=== PATIENT | female | born 1990 | race Hispanic/Latino ===

== ENCOUNTER 2016-08-21 15:55 | Emergency (ER) | payer MEDICAID ==
[2016-08-21 16:03] VITALS: TEMP 98.6
--- NOTE | 2016-08-21 16:20 | ED PDOC ---
Arrival/HPI - General Chief Complaint: Alcohol Ingestion Time Seen by Provider: 08/21/16 15:57 Historian: Patient - History of Present Illness Narrative History of Present Illness (Text): 08/21/16 16:16 26 y/o female, pmh including alcohol withdrawal seizure, psychiatric history of alcohol abuse, c/o need prescription for librium. Pt. stated that she has been drinking for the past half 2 weeks, last detox about 3 weeks ago, stated that she is afraid that she will get withdrawal seizure as she wants to stop drinking. Pt. has no chest pain or shortness of breath, no palpitation, no dizziness, no palpitation, no rash, no numbness or tingling, no change in vision , no other medical or psychological complaints. Pt. has no homicidal or suicidal ideation, no auditory or visual hallucination. Past Medical History - Provider Review Nursing Documentation Reviewed: Yes - Cardiac Hx Cardiac Disorders: No - Pulmonary Hx Respiratory Disorders: No - Neurological Hx Neurological Disorder: No - HEENT Hx HEENT Disorder: No - Renal Hx Renal Disorder: No - Endocrine/Metabolic Hx Endocrine Disorders: No - Hematological/Oncological Hx Cancer: Yes - Integumentary Hx Dermatological Disorder: No - Musculoskeletal/Rheumatological Hx Musculoskeletal Disorders: No - Gastrointestinal Other/Comment: SMALL BOWEL CA - Genitourinary/Gynecological Hx Genitourinary Disorders: No - Psychiatric Hx Depression: Yes Hx Substance Use: No Other/Comment: HX OF PSYCH ADMISSION - Surgical History Hx Orthopedic Surgery: Yes (R ANKLE) Other/Comment: BOWEL RESECTION Family/Social History - Physician Review Nursing Documentation Reviewed: Yes Family/Social History: Unknown Family HX Smoking Status: Heavy Smoker > 10 Cigarettes Daily Hx Alcohol Use: Yes Hx Substance Use: No Allergies/Home Meds Allergies/Adverse Reactions: Allergies No Known Allergies Allergy (Verified 08/21/16 15:57) Review of Systems - Review of Systems Constitutional: absent: Fatigue, Fevers Eyes: absent: Vision Changes ENT: absent: Hearing Changes Respiratory: absent: SOB, Cough Cardiovascular: absent: Chest Pain Gastrointestinal: absent: Abdominal Pain, Nausea, Vomiting Musculoskeletal: absent: Arthralgias, Back Pain, Neck Pain, Joint Swelling, Myalgias Skin: absent: Rash, Pruritis, Skin Lesions Psychiatric: absent: Anxiety, Depression, Suicidal Ideation Physical Exam Vital Signs Reviewed: Yes Vital Signs Temp Pulse Resp BP Pulse Ox 08/21/16 15:58 98.6 F 80 16 123/81 96 Temperature: Afebrile Blood Pressure: Normal Pulse: Regular Respiratory Rate: Normal Appearance: Positive for: Well-Appearing, Non-Toxic, Comfortable Pain Distress: None Mental Status: Positive for: Alert and Oriented X 3 - Systems Exam Head: Present: Atraumatic, Normocephalic Pupils: Present: PERRL Extroacular Muscles: Present: EOMI Conjunctiva: Present: Normal Mouth: Present: Moist Mucous Membranes Neck: Present: Normal Range of Motion Respiratory/Chest: Present: Clear to Auscultation, Good Air Exchange. No: Respiratory Distress, Accessory Muscle Use Cardiovascular: Present: Regular Rate and Rhythm, Normal S1, S2. No: Murmurs Abdomen: Present: Normal Bowel Sounds. No: Tenderness, Distention, Peritoneal Signs Back: Present: Normal Inspection Upper Extremity: Present: Normal Inspection. No: Cyanosis, Edema Lower Extremity: Present: Normal Inspection. No: Edema Neurological: Present: GCS=15, CN II-XII Intact, Speech Normal, Motor Func Grossly Intact, Gait Normal, Memory Normal, Other (no tongue fasciculation, no hand tremors) Skin: Present: Warm, Dry, Normal Color. No: Rashes Psychiatric: Present: Alert, Oriented x 3, Normal Insight, Normal Concentration. No: Anxious, Agitated, Depressed Mood, Suicidal Ideation, Homicidal Ideation, Intoxicated Medical Decision Making ED Course and Treatment: 08/21/16 16:20 -I reviewed the [facility] report with DR. Sahu, last librium 25mg/capsule with 15 capsules on 03/25/2016. Pt. is high risk for withdrawal seizure, we will prescribe librium to her. -Urine hcg negative. -FS 81 -Discharge home with librium, stay hydrated, follow up with your own pmd and detox facilities within 2 days, return to the ER for any new or worsening signs or symptoms. - PA / WOOD FLOUR MILLER / Resident Statement MD/DO has reviewed & agrees with the documentation as recorded. Disposition/Present on Arrival - Present on Arrival Any Indicators Present on Arrival: No History of DVT/PE: No History of Uncontrolled Diabetes: No Urinary Catheter: No History of Decub. Ulcer: No History Surgical Site Infection Following: None - Disposition Have Diagnosis and Disposition been Completed?: Yes Diagnosis: General medical examination, Alcohol abuse Disposition: HOME/ ROUTINE Disposition Time: 16:22 Patient Plan: Discharge Patient Problems: Current Active Problems Problem Status Onset Alcohol abuse Acute General medical examination Acute Condition: GOOD Additional Instructions: Discharge home with librium, stay hydrated, follow up with your own pmd and detox facilities within 2 days, return to the ER for any new or worsening signs or symptoms. Prescriptions: chlordiazePOXIDE [Chlordiazepoxide HCl] 25 mg PO TID PRN #12 cap PRN Reason: Other Referrals: [facility] at [facility] [place] [Outside] - Follow up with [facility] [[facility]] - Follow up with primary Forms: WORK NOTE
[2016-08-21] MEDS ORDERED: Multivitamin (MVI) 10 ML, Thiamine 100 MG, Folic Acid 1 MG in Dextrose 5% In Water 1,00... IV ONE (17:06)
--- NOTE | 2016-08-21 17:08 | ED PDOC ---
Arrival/HPI - General Chief Complaint: Alcohol Ingestion Time Seen by Provider: 08/21/16 15:57 Historian: Patient - History of Present Illness Narrative History of Present Illness (Text): 08/21/16 17:05 Pt. is currently in the ER now, stating that she feels depress, wants to see a psychiatrist, no homicidial or suicidal ideation. Time/Duration: Prior to Arrival Past Medical History - Provider Review Nursing Documentation Reviewed: Yes - Cardiac Hx Cardiac Disorders: No - Pulmonary Hx Respiratory Disorders: No - Neurological Hx Neurological Disorder: No - HEENT Hx HEENT Disorder: No - Renal Hx Renal Disorder: No - Endocrine/Metabolic Hx Endocrine Disorders: No - Hematological/Oncological Hx Cancer: Yes - Integumentary Hx Dermatological Disorder: No - Musculoskeletal/Rheumatological Hx Musculoskeletal Disorders: No - Gastrointestinal Other/Comment: SMALL BOWEL CA - Genitourinary/Gynecological Hx Genitourinary Disorders: No - Psychiatric Hx Depression: Yes Hx Substance Use: No Other/Comment: HX OF PSYCH ADMISSION - Surgical History Hx Orthopedic Surgery: Yes (R ANKLE) Other/Comment: BOWEL RESECTION Family/Social History - Physician Review Nursing Documentation Reviewed: Yes Family/Social History: Unknown Family HX Smoking Status: Heavy Smoker > 10 Cigarettes Daily Hx Alcohol Use: Yes Hx Substance Use: No Allergies/Home Meds Allergies/Adverse Reactions: Allergies No Known Allergies Allergy (Verified 08/21/16 15:57) Review of Systems - Review of Systems Constitutional: absent: Fatigue, Fevers Eyes: absent: Vision Changes ENT: absent: Hearing Changes, Rhinorrhea Respiratory: absent: SOB, Cough Cardiovascular: absent: Chest Pain Gastrointestinal: absent: Abdominal Pain, Nausea, Vomiting Skin: absent: Rash, Pruritis, Skin Lesions Neurological: absent: Headache, Dizziness, Focal Weakness Endocrine: absent: Diaphoresis, Polyuria Psychiatric: Depression, Other (tearful). absent: Anxiety, Suicidal Ideation Physical Exam Vital Signs Reviewed: Yes Vital Signs Temp Pulse Resp BP Pulse Ox 08/21/16 19:58 76 18 112/62 99 08/21/16 15:58 98.6 F 80 16 123/81 96 Temperature: Afebrile Blood Pressure: Normal Pulse: Regular Respiratory Rate: Normal Appearance: Positive for: Well-Appearing, Non-Toxic, Comfortable Pain Distress: None Mental Status: Positive for: Alert and Oriented X 3 Finger Stick Blood Glucose: 81 - Systems Exam Head: Present: Atraumatic, Normocephalic Pupils: Present: PERRL Extroacular Muscles: Present: EOMI Conjunctiva: Present: Normal Mouth: Present: Moist Mucous Membranes Neck: Present: Normal Range of Motion, Trachea Midline. No: Meningeal Signs, MIDLINE TENDERNESS, Paraspinal Tenderness, Lymphadenopathy Respiratory/Chest: Present: Clear to Auscultation, Good Air Exchange. No: Respiratory Distress, Accessory Muscle Use, Wheezes, Decreased Breath Sounds, Rales, Retracting, Rhonchi, Tachypneic, Tender to Palpation, Other Cardiovascular: Present: Regular Rate and Rhythm, Normal S1, S2. No: Murmurs Abdomen: Present: Normal Bowel Sounds. No: Tenderness, Distention, Peritoneal Signs, Rebound, Guarding Upper Extremity: Present: Normal Inspection. No: Cyanosis, Edema Lower Extremity: Present: Normal Inspection. No: Edema Neurological: Present: GCS=15, Speech Normal, Motor Func Grossly Intact, Gait Normal, Memory Normal, Other (no tongue fasciculation, no hand tremors) Skin: Present: Warm, Dry, Normal Color. No: Rashes Psychiatric: Present: Alert, Oriented x 3, Normal Insight, Normal Concentration Medical Decision Making ED Course and Treatment: 08/21/16 17:09 -labs/ua/uds -ekg -chest x-ray -IV banana bag ordered -barrel leveler -observe and reassess 08/21/16 19:47 -Labs are non-significant except etoh intoxicated which she is sobered now -Chest x-ray show no active disease -EKG: NSR @ 65 BPM, no ST elevation or depression, no T wave inversion. -Pt. evaluated by the LUIS Salmon which he spoke to the psychiatrist, clear for psychiatrically. -[facility] offered detox which he declined now -Pt. has no signs of alcohol withdrawal now. -Discharge home with education continue your librium prescription, follow up with your own pmd and detox unit, return to the ER for any new or worsening signs or symptoms. - Lab Interpretations Lab Results: 08/21/16 17:10 08/21/16 17:10 Lab Results 08/21/16 17:10: Urine Color Light yellow, Urine Appearance Clear, Urine pH 6.5, Ur Specific Gillespie 1.010, Urine Protein Negative, Urine Glucose (UA) Negative, Urine Ketones Negative, Urine Blood Negative, Urine Nitrate Negative, Urine Bilirubin Negative, Urine Urobilinogen 0.2, Ur Leukocyte Esterase Negative 08/21/16 17:10: Salicylates < 1 L, Acetaminophen < 10.0 L 08/21/16 17:10: Alcohol, Quantitative 207 H 08/21/16 17:10: Urine Opiates Screen Negative, Urine Methadone Screen Negative, Ur Barbiturates Screen Negative, Ur Phencyclidine Scrn Negative, Ur Amphetamines Screen Negative, U Benzodiazepines Scrn Negative, U Oth Cocaine Metabols Negative, U Cannabinoids Screen Positive H 08/21/16 17:10: Sodium 144, Potassium 3.9, Chloride 102, Carbon Dioxide 27, Anion Gap 19, BUN 9, Creatinine 0.6, Est GFR ( Amer) > 60, Est GFR (Non- Af Amer) > 60, Random Glucose 87, Calcium 8.5, Total Bilirubin 0.6, AST 43 H, ALT 29, Alkaline Phosphatase 54, Total Protein 7.7, Albumin 4.5, Globulin 3.2, Albumin/Globulin Ratio 1.4 08/21/16 17:10: WBC 6.0, RBC 4.51, Hgb 13.6, Hct 39.3, MCV 87.1, MCH 30.2, MCHC 34.6, RDW 13.9, Plt Count 359, MPV 8.5, Gran % 47.3 L, Lymph % (Auto) 43.9 H, Wheeler % (Auto) 7.8 H, Eos % (Auto) 0.5 L, Baso % (Auto) 0.5, Gran # 2.85, Lymph # 2.7, Wheeler # 0.5, Eos # 0.0, Baso # 0.03 08/21/16 16:22: POC Glucose (mg/dL) 81 I have reviewed the lab results: Yes Interpretation: Abnormal lab values (etoh 207) - RAD Interpretation Radiology Orders: 08/21/16 17:06 CHEST PORTABLE [RAD] Stat Retail Visual Merchandiser: Radiologist - Medication Orders Current Medication Orders: Discontinued Medications Chlordiazepoxide (Librium) 25 mg PO STAT STA PRN Reason: Protocol Stop: 08/21/16 16:30 Last Admin: 08/21/16 16:37 Dose: 25 mg Multivitamins/Vitamin C 10 ml/Thiamine HCl 100 mg/ Folic Acid 1 mg/ Dextrose 1, 011.2 mls @ 1,000 mls/hr IV .[id number] ONE Stop: 08/21/16 18:06 Last Admin: 08/21/16 18:02 Dose: 1,000 mls/hr - PA / PARTNER MANAGER / Resident Statement / has reviewed & agrees with the documentation as recorded. Disposition/Present on Arrival - Present on Arrival Any Indicators Present on Arrival: No History of DVT/PE: No History of Uncontrolled Diabetes: No Urinary Catheter: No History of Decub. Ulcer: No History Surgical Site Infection Following: None - Disposition Have Diagnosis and Disposition been Completed?: Yes Diagnosis: General medical examination, Alcohol abuse, Depression Disposition: HOME/ ROUTINE Disposition Time: 19:50 Patient Plan: Discharge Condition: GOOD Additional Instructions: Discharge home with librium, stay hydrated, follow up with your own pmd and detox facilities within 2 days, return to the ER for any new or worsening signs or symptoms. Prescriptions: chlordiazePOXIDE [Chlordiazepoxide HCl] 25 mg PO TID PRN #12 cap PRN Reason: Other Referrals: [facility] [Outside] - Follow up with primary [facility] [place] [Outside] - Follow up with primary Forms: WORK NOTE
[2016-08-21 17:22] LABS: ADD MANUAL DIFF? NO
[2016-08-21 17:26] LABS: BASO # 0.03 K/mm3 (0.0-2.0); BASO % 0.5 % (0.0-3.0); EOS % 0.5 % (1.5-5.0); GRAN # 2.85 (1.4-6.5); GRAN % 47.3 % (50.0-68.0); HEMATOCRIT 39.3 % (36.0-48.0); LYMPH # 2.7 (1.2-3.4); LYMPH % 43.9 % (22.0-35.0); MEAN CELL VOLUME 87.1 fL (80.0-105.0); MEAN CORPUSCULAR HEMOGLOBIN 30.2 pg (25.0-35.0); MEAN CORPUSCULAR HGB CONC 34.6 g/dl (31.0-37.0); MEAN PLATELET VOLUME 8.5 fl (7.0-11.0); MONO # 0.5 (0.1-0.6); MONO % 7.8 % (1.0-6.0); PLATELET COUNT 359 10^3/uL (120.0-450.0); RED CELL DISTRIBUTION WIDTH 13.9 % (11.5-14.5)
[2016-08-21 17:28] LABS: PH,URINE 6.5 (4.7-8.0); URINE BILIRUBIN NEGATIVE (NEGATIVE); URINE BLOOD NEGATIVE (NEGATIVE); URINE GLUCOSE (UA) NEGATIVE (NEGATIVE); URINE KETONE NEGATIVE (NEGATIVE); URINE LEUKOCYTE ESTERASE NEGATIVE Leu/uL (NEGATIVE); URINE PROTEIN NEGATIVE mg/dL (<30 mg/dL); URINE UROBILINOGEN 0.2 E.U./dL (<1 E.U./dL)
[2016-08-21 17:29] LABS: URINE APPEARANCE CLEAR (CLEAR); URINE COLOR LIGHT YELLOW (YELLOW)
[2016-08-21 17:38] LABS: ALB/GLOB RATIO 1.4 (1.1-1.8); ALKALINE PHOSPHATASE 54 U/L (38-133); ALT/SGPT 29 U/L (7-56); AST/SGOT 43 U/L (15-39); BILIRUBIN,TOTAL 0.6 mg/dL (0.2-1.3); BLOOD UREA NITROGEN 9 mg/dL (7-21); CALCIUM 8.5 mg/dL (8.4-10.5); CARBON DIOXIDE 27 mmol/L (21-33); CHLORIDE 102 mmol/L (98-107); GFR AFRICAN-AMERICAN > 60; GLUCOSE,RANDOM 87 mg/dL (70-110); POTASSIUM 3.9 mmol/L (3.6-5.0); SODIUM 144 mmol/L (132-148); TOTAL PROTEIN 7.7 g/dL (5.8-8.3)
[2016-08-21 19:58] VITALS: BP 112/62; PULSE 76; RESP 18; O2SAT 99
--- NOTE | 2016-08-22 08:18 | RAD ---
HISTORY: medical clearance COMPARISON: No prior. FINDINGS: The left MediPort terminates in the SVC. LUNGS: The lungs are well inflated and clear. PLEURA: No significant pleural effusion identified, no pneumothorax apparent. CARDIOVASCULAR: Normal. OSSEOUS STRUCTURES: No significant abnormalities. VISUALIZED UPPER ABDOMEN: Normal. OTHER FINDINGS: None. IMPRESSION: No active pulmonary disease.
--- NOTE | 2016-08-22 16:26 | CARD ---
APPROVED REPORT EKG Measurement Heart [id number] <Conclusion> Normal sinus rhythm Normal ECG
== END 2016-08-21 20:00 | disposition home or self-care (01) ==
LOC: MERGE 15:55 → ED 15:55
DX: Z00.00 Encounter for general adult medical examination without abnormal findings (principal); F10.10 Alcohol abuse, uncomplicated; Y90.7 Blood alcohol level of 200-239 mg/100 ml; F32.9 Major depressive disorder, single episode, unspecified; F17.210 Nicotine dependence, cigarettes, uncomplicated
CPT/HCPCS: 71010; 80053; 80320; 80324; 80329; 80345; 80346; 80349; 80353; 80358; 80361; 81003; 82948; 83992; 85025; 90791; 93005; 96374; 99283; J3411; J7070